=== PATIENT | female | born 1980 | race Caucasian/White ===

== ENCOUNTER 2016-12-17 06:30 | Inpatient (IN) | payer BC ==
[2016-12-17] MEDS ORDERED: Ibuprofen 800 MG TAB PO PRN (06:58)
[2016-12-17] MEDS ORDERED: Ondansetron HCl/PF 4 MG/2 ML Vial IVP PRN ×2 (06:58→20:22)
[2016-12-17] MEDS ORDERED: Acetaminophen/Codeine 30-300mg Tablet PO PRN ×4 (06:58→20:22)
[2016-12-17] MEDS ORDERED: LR 500 ML/Oxytocin 10 units 500 ML IV SCH ×2 (06:58)
[2016-12-17] MEDS ORDERED: Lidocaine 1% (PF) 30 ML VIAL SC PRN (06:58)
[2016-12-17] MEDS ORDERED: LR / Pitocin 40 units/1000 ml 1,000 ML IV PRN (06:58)
[2016-12-17] MEDS ORDERED: Promethazine HCl 25 MG/ML VIAL IM PRN (06:58)
[2016-12-17] MEDS ORDERED: Meperidine HCl/PF 25 MG/ML VIAL IM/IV PRN (06:58)
[2016-12-17 07:50] LABS: Hematocrit 36.7 % (36.0-47.0); Mean Platelet Volume 8.1 fL (7.4-10.4); Red Blood Cell (RBC) Count 3.99 mill/uL (4.20-5.40); White Blood Cell (WBC) Count 7.3 thou/uL (4.8-10.8)
[2016-12-17] MEDS: Lactated Ringer's 1,000 ML IV SCH ×2 (08:18→12:18)
[2016-12-17 08:27] VITALS: BMI 31.1
--- NOTE | 2016-12-17 11:48 | PDOC.LDHP ---
Labor and Delivery H&P Chief complaint: scheduled induction HPI: Pt is a 36yo here for IOL @ 39 weeks, hx of hypothyroidism and IVF. Current gestational age (weeks): 39 Due date: 12/18/16 Dating criteria: other (IVF embryo transfer) Grav: 3 Para: 1 OB History Details: IOL IUGR 2013 MTX ectopic 2015 Current complications: none Abnormal US findings: No Past Medical History: hypothyroidism Current medications: pre- vitamins, other (synthroid 175mcg) Previous surgical history: none (LSO) Allergies/Adverse Reactions: Allergies Allergy/AdvReac Type Severity Reaction Status Date / Time No Known Allergies Allergy Verified 12/02/14 17:28 Social history: none - Physical Exam Vital signs reviewed and normal: yes General: resting Heart: RRR Lungs: nonlabored breathing Abdomen: gravid Extremeties: trace edema FHT: category 1 - Vaginal Exam cm dilated: 1 Effacement: 50% Station: -2 - OB Labs Blood type: AB RH: positive Antibody Screen: negative HIV: negative RPR: negative HEPSAg: negative 1 hour GCT: negative GBS: negative Rubella: immune - Assessment L&D Assessment: elective induction at term - Plan Plan: admit to L&D, cervical ripening, labor augmentation if indicated, informed consent obtained, anesthesia consult for pain management -: A/P: IOL @ 39 weeks, hypothryoid and IVF. Plan pitocin and AROM.
--- NOTE | 2016-12-17 11:52 | PDOC.LDPN ---
Labor & Delivery Progress Note - Subjective Subjective: comfortable - Objective Vital signs reviewed and normal: yes General: breathing through contractions Dilation: 4 Effacement: 75% Station: -2 FHT: category 1 [place] contractions every: 3 AROM: clear fluid (AROM on exam) - Assessment (1) 39 weeks gestation of Code(s): Z3A.39 - 39 WEEKS GESTATION OF Current Visit: Yes Status : Acute Plan: labor augmentation (pitocin 16mu/min), other
--- NOTE | 2016-12-17 18:47 | PDOC.OPDEL ---
OB Operative/Delivery Note Delivery Dr/Surgeon: Abad Pre-Delivery Diagnosis: elective induction Procedure/Post Delivery Dx: spontaneous vaginal delivery Weeks gestation: 39 Anesthesia: local - Findings A Sex: male - 1 min: 8 - 5 min: 9 - Additional Findings/Plan Placenta delivered: spontaneous Repaired Obstetrical Laceration: 1st degree Estimated blood loss: 300ml Post delivery plan: routine recovery
[2016-12-17] MEDS ORDERED: Lanolin Ointment 7 GM TUBE TOP PRN (20:22)
[2016-12-17] MEDS ORDERED: Adacel (T-DAP) 0.5 ML VIAL IM ONE (20:22)
[2016-12-17] MEDS ORDERED: Benzocaine/Menthol 20-0.5% 60 ML CAN TOP PRN (20:22)
[2016-12-17] MEDS ORDERED: LR / Pitocin 40 units/1000 ml 1,000 ML IV SCH (20:22)
[2016-12-17] MEDS ORDERED: diphenhydrAMINE 25 MG CAP PO PRN (20:22)
[2016-12-17] MEDS ORDERED: Preparation H Ointment 28 GM TUBE PR PRN (20:22)
[2016-12-17] MEDS ORDERED: Bisacodyl 10 MG SUPP PR PRN (20:22)
[2016-12-17] MEDS ORDERED: Milk Of Magnesia 30 ML UDCUP PO PRN (20:22)
[2016-12-18] MEDS: Ibuprofen 800 MG TAB PO SCH ×4 (00:12→21:43)
[2016-12-18] MEDS: Docusate (Surfak) 240 MG CAP PO SCH ×3 (00:13→21:43)
[2016-12-18] MEDS: Prenatal Vitamin 1 TAB PO SCH (08:30)
[2016-12-18] MEDS: Ferrous Sulfate 325 MG TAB PO SCH ×2 (08:30→13:53)
--- NOTE | 2016-12-18 09:01 | PDOC.PP ---
Post Progress Note Post Day #: 1 Subjective: doing well, no concerns, min lochia PO intake tolerated: yes Flatus: yes Ambulation: yes Vital Signs (12 hours) Temp Pulse Resp BP 12/18/16 04:00 98.5 F 75 18 118/60 12/18/16 00:00 97.8 F 72 18 12/17/16 23:20 97.8 F 72 18 124/60 12/17/16 22:00 97.8 F 72 18 119/64 Weight Weight 205 lb - Physical Examination General: NAD Respiratory: non-labored breathing Abdominal: appropriately TTP Fundus firm & at: below umb Extremities: negative homans (B) Skin: no rash Neurological: no gross focal deficits Psychiatric: A&Ox3 Result Diagrams: 12/17/16 07:21 Additional Labs: Post Labs Blood Type AB POSITIVE 12/17/16 07:21 Hep Bs Antigen Non-Reactive S/CO (NonReactive) 12/17/16 07:21 (1) 39 weeks gestation of Code(s): Z3A.39 - 39 WEEKS GESTATION OF Status: Acute (2) Vaginal delivery Code(s): O80 - ENCOUNTER FOR FULL-TERM UNCOMPLICATED DELIVERY Status: Acute - Assessment/Plan A/P: PPD 1 doing well, no concerns, plan for DC when baby DC'd.
[2016-12-19] MEDS: Ibuprofen 800 MG TAB PO SCH (05:56)
[2016-12-19 08:03] VITALS: BP 125/74; TEMP 98
[2016-12-19] MEDS: Prenatal Vitamin 1 TAB PO SCH (08:46)
[2016-12-19] MEDS: Docusate (Surfak) 240 MG CAP PO SCH (08:46)
[2016-12-19] MEDS: Ferrous Sulfate 325 MG TAB PO SCH (08:47)
--- NOTE | 2016-12-19 10:15 | PDOC.PP ---
Post Progress Note Post Day #: 2 Subjective: doing well PO intake tolerated: yes Flatus: yes Ambulation: yes Vital Signs (12 hours) Temp Pulse Resp BP 12/19/16 08:03 98.0 F 65 20 125/74 12/19/16 07:45 98.0 F 65 20 12/19/16 04:00 98.5 F 66 18 12/19/16 00:00 98.5 F 66 18 Weight Weight 205 lb - Physical Examination Respiratory: non-labored breathing Fundus firm & at: below umb Extremities: negative homans (B) Psychiatric: A&Ox3, normal affect Result Diagrams: 12/17/16 07:21 Additional Labs: Post Labs Blood Type AB POSITIVE 12/17/16 07:21 Hep Bs Antigen Non-Reactive S/CO (NonReactive) 12/17/16 07:21 (1) 39 weeks gestation of Code(s): Z3A.39 - 39 WEEKS GESTATION OF Status: Acute (2) Vaginal delivery Code(s): O80 - ENCOUNTER FOR FULL-TERM UNCOMPLICATED DELIVERY Status: Acute - Assessment/Plan PPD2 doing well, plan for DC after circ.
== END 2016-12-19 11:50 | disposition home or self-care (01) | DRG 775 ==
LOC: L&D 06:30 → L&D/OP 06:30 → L&D 06:56 → L&D/OP 06:56 → 3SW 21:46
PROVIDERS: ADMIT Obstetrics & Gynecology; ATTEND Obstetrics & Gynecology
PROC: 10E0XZZ Delivery of Products of Conception, External Approach (ICD-10-PCS; principal; 2016-12-17)
PROC: 0HQ9XZZ Repair Perineum Skin, External Approach (ICD-10-PCS; 2016-12-17)
PROC: 10907ZC Drainage of Amniotic Fluid, Therapeutic from Products of Conception, Via Natural or Artificial Opening (ICD-10-PCS; 2016-12-17)
PROC: 3E0P3VZ Introduction of Hormone into Female Reproductive, Percutaneous Approach (ICD-10-PCS; 2016-12-17)
PROC: 4A0HXCZ Measurement of Products of Conception, Cardiac Rate, External Approach (ICD-10-PCS; 2016-12-17)
DX: O76 Abnormality in fetal heart rate and rhythm complicating labor and delivery (principal); O77.0 Labor and delivery complicated by meconium in amniotic fluid; O70.0 First degree perineal laceration during delivery; Z37.0 Single live birth; Z3A.39 39 weeks gestation of pregnancy
CPT/HCPCS: 85027; 86780; 86850; 86900; 86901; 87340; J0595; J2001; J2405; J7120

== ENCOUNTER 2018-10-05 14:29 | Outpatient (CLI) | payer BC ==
--- NOTE | 2018-10-05 15:44 | ULT ---
THYROID ULTRASOUND: HISTORY: Javi thyroiditis. Evaluate for thyroid mass. COMPARISON: None. TECHNIQUE: Sagittal and transverse imaging of the thyroid gland was performed. FINDINGS: Diffuse heterogeneity throughout the thyroid gland. No intrinsic masses. The thyroid isthmus measur es 0.4 cm. The right thyroid lobe measures 4.7 x 1.4 x 1.4 cm. The left thyroid lobe measures 1.5 x 1.4 x 4.8 cm. Inferior to the lower pole left thyroid lobe is a 0.6 x 0.6 x 1.0 cm soft tissue mass. This mass appears to be extrathyroid in location. Pre- and postcontrast soft tissue neck CT utilizin g a parathyroid adenoma protocol may be beneficial in the appropriate clinical setting. IMPRESSION: 1. Heterogeneous thyroid gland without discrete thyroid mass. 2. Extrathyroid soft tissue mass inferior to the left thyroid lobe. Parathyroid adenoma protocol ca n be performed in the appropriate clinical setting. POS: OFF
== END 2018-10-05 14:30 | disposition home or self-care (01) ==
LOC: BICULT 14:29
PROVIDERS: ATTEND Internal Medicine Endocrinology, Diabetes & Metabolism
DX: E06.3 Autoimmune thyroiditis (principal); E07.89 Other specified disorders of thyroid
CPT/HCPCS: 76536

== ENCOUNTER 2019-04-20 10:34 | Outpatient (CLI) | payer BC ==
--- NOTE | 2019-04-20 11:14 | RAD ---
LEFT KNEE 3 VIEWS: Date: 04/20/2019 HISTORY: Left knee pain. Pain of meniscus of left knee. FINDINGS/IMPRESSION: No fracture, dislocation, or bony destruction is seen. If there is concern for meniscal tear, further evaluation with MRI should be performed. POS: TPC
== END 2019-04-20 10:35 | disposition home or self-care (01) ==
LOC: BICRAD 10:34
PROVIDERS: ATTEND Family Medicine
DX: M25.562 Pain in left knee (principal)

== ENCOUNTER 2020-11-21 13:02 | Outpatient (CLI) | payer BC | END 2020-11-21 13:03 | disposition home or self-care (01) | LOC: BICULT 13:02 | PROVIDERS: ATTEND Family Medicine | DX: E06.3 Autoimmune thyroiditis (principal); E04.1 Nontoxic single thyroid nodule | CPT/HCPCS: 76536 ==

== ENCOUNTER 2022-06-10 15:46 | Outpatient (CLI) | payer BC | END 2022-06-10 15:47 | disposition home or self-care (01) | LOC: ULT 15:46 | PROVIDERS: ATTEND Obstetrics & Gynecology | DX: M79.621 Pain in right upper arm (principal) | CPT/HCPCS: 76999 ==

== ENCOUNTER 2022-07-04 14:46 | Outpatient (CLI) | payer BC | END 2022-07-04 14:47 | disposition home or self-care (01) | LOC: BICMAMMO 14:46 | PROVIDERS: ATTEND Obstetrics & Gynecology | DX: N63.20 Unspecified lump in the left breast, unspecified quadrant (principal) | CPT/HCPCS: 77066; G0279 ==